=== PATIENT | male | born 1985 | race Caucasian/White ===

== ENCOUNTER 2025-06-21 13:53 | Outpatient (CLI) | payer BC, SELFPAY ==
--- NOTE | 2025-06-21 14:42 | ECG_ITS ---
Test Date: 2025-06-21 14:57:33 Measurements Intervals [place] Rate: 72 P: 23 IA: 156 QRS: -10 QRSD: 111 T: -7 QT: 400 QTc: 439 Interpretive Statements SINUS RHYTHM NONSPECIFIC ST-T CHANGES No previous ECG available for comparison Electronically Signed On 06-21-2025 15:23:07 HAT CONE INSPECTOR by Zia Thapa M.D.
[2025-06-21 15:14] LABS: Add Urine Microscopic? NO; Appearance Urine Clear (Clear); Glucose Urine UA Negative (Negative); Hematocrit 46.6 % (42.0-52.0); Hemoglobin 15.9 g/dL (14.0-18.0); Leukocyte Esterase Ur Negative LEU/UL (Negative); Mean Corpuscular HGB Conc 34.1 g/dl (32-36); Mean Corpuscular Hemoglobin 29.9 pg (26-34); Mean Corpuscular Volume 87.8 fl (80-100); Nitrate Urine Negative (Negative); Platelet Count Result 305 k/mm3 (150-375); Red Blood Count 5.31 M/mm3 (4.6-6.20); Specific Grav Ur 1.014 (1.001-1.035); White Blood Count 12.3 K/mm3 (4.5-10.0)
[2025-06-21 15:24] LABS: Anion Gap 8 mmol/L (4-12); Blood Urea Nitrogen 17 mg/dL (9-20); Calcium 9.4 mg/dL (8.4-10.2); Carbon Dioxide 31 mmol/L (22-30); Chloride 102 mmol/L (98-107); Estimated Glomerular Filt Rate > 60; Glucose 97 mg/dL (65-110); Potassium 3.8 mmol/L (3.4-5.0); Sodium 141 mmol/L (137-145)
[2025-06-21 15:27] LABS: INR 1.0; Prothrombin Time 13.8 Seconds (11.1-14.7)
[2025-06-21 15:28] LABS: Partial Thromboplastin Time 27.0 Seconds (22.3-36.8)
== END 2025-06-21 13:54 | disposition home or self-care (01) ==
LOC: ANHSURGERY 13:59
PROVIDERS: Visit Provider Neurological Surgery
DX: Z01.818 Encounter for other preprocedural examination (principal); I10 Essential (primary) hypertension; M51.369 Other intervertebral disc degeneration, lumbar region without mention of lumbar back pain or lower extremity pain; M48.061 Spinal stenosis, lumbar region without neurogenic claudication
CPT/HCPCS: 36415; 80048; 81003; 85027; 85610; 85730; 93005

== ENCOUNTER 2025-07-14 16:06 | Observation (INO) | payer BC, SELFPAY ==
[2025-06-21 14:20] VITALS: BP 151/98; PULSE 80; RESP 16; TEMP 36.9; O2SAT 98; BMI 38.9
--- NOTE | 2025-06-21 14:35 | PC.NURSE ---
Addendum entered by Rocío Sanders RN 06/21/25 14:40: PT to monitor BP and take meds as prescribed and let PCP know if it remains high, pt was out of medications for pasta 5 days PRINCE Original Note: [facility] has started construction of its new state of the art ER which will open Spring 2026. With this, we anticipate parking may be a challenge for some our surgical patients and families. Parking spaces are limited but are available for all Surgical, obstetrics, and ER patients sharing this lot. If you arrive and find you are having a hard time finding a parking space, please note that we understand the challenges, please drive around the hospital and park near Hospital Entrance 1. When you enter this entrance, you can ask a volunteer to direct or take you back to the surgical waiting area to check in. We appreciate everyone?s understanding of these expected challenges while we build for your future. Report to the Outpatient Waiting Room, entrance under the green pavilion located off [address], at time _1000am on date ___07/13/25 ____. Planned Procedure Time: ___1200pm .? Time changes happen often and if your time is changed the preop area will call you the afternoon before. - You and your visitor will be asked to self-screen and do not enter if you have any COVID symptoms. Please call surgeon if you need to reschedule. - A mask is optional within the hospital at this time. Patients may have clear liquids (water, carbonated beverages, clear teas, apple juice) until 3 hours prior to surgery with a maximum of 20 ounces. - No food from midnight until time of surgery and no smoking, or chewing tobacco (or any form of nicotine). No chewing gum, candy or mints. (09:00am) Take only the following medications with a SIP of water on the morning of surgery: ___Amlodipine, Fluoxetine, Metoprolol and Tylenol if needed DO NOT STOP ANY OF YOUR OTHER PRESCRIPTION MEDICATIONS PRIOR TO SURGERY EXCEPT THE FOLLOWING Hold all vitamins and supplements for 3 days per anesthesiologist. Medications to discontinue per physician Hold Aleve, NSAIDS for [address] Arriola Date to take last dose 07/05/25 Please no make-up, nail english, hairspray, perfume, deodorant, or body powder the day of surgery.? No jewelry (including any body piercings) or valuables the day of surgery, leave them at home.? Please take a shower or bath the night before, or the morning of, surgery with an antibacterial soap. DIAL SOAP? Wear comfortable, loose fitting clothing.? Bring Overnight bag w toiletries . - Jewelry must be removed prior to entering the operating room.? Rings and piercings that are not removed may be cut off. - The hospital will not accept responsibility for valuables.? - Please leave all valuables, including medications, at home the day of surgery. If you are going home after surgery, a licensed utility worker driver must drive you home.? - NO public transportation without another adult if you receive anesthesia. - We recommend that an adult stay with you for 24 hours following discharge. - We also recommend that you do not drive, make important decision, drink alcoholic beverages, or take any drugs that were not prescribed by your health care provider for at least 24 hours after your discharge time. Follow any additional instructions given to you from your surgeon. Telephone instructions given to ___Patient and asked if any additional questions and then verbalized understanding. Patient advised to call surgeon office or pre surgery nurse liaison [phone] if any additional questions.
[2025-07-13] VITALS (16 sets, daily range): BP systolic 103–144; BP diastolic 52–95; PULSE 66–98; RESP 12–18; TEMP 35.3–36.8; O2SAT 87–97
--- OUTSIDE RECORDS SUMMARY | 2025-07-13 02:10 | XMS_ITS | Clinical Summary ---
Author Organization [facility] Address [address] [place] [address] Care Team Providers Care Barrel Rifler Hook Name Role Phone Tala Romero NP Primary Care Provider Antony Sarah MD Unavailable [phone] Allergies Active Allergy Reactions Criticality Noted Date Comments Allopurinol Vomiting Low 03/01/2023 Hydrochlorothiazide Other (See comments) Low 2020 Flares up gout Medications losartan (COZAAR) 100 mg tablet Take 1 tablet (100 mg total) by mouth daily Active pancrelipase (CREON) 24,000 units of lipase capsuleIndication s:exocrine pancreatic insufficiency Take 2 capsules by mouth 3 (three) times a day with meals Active pancrelipase (CREON) 24,000 units of lipase capsuleIndication s:exocrine pancreatic insufficiency Take 1 capsule by mouth with snacks for with snacks Active metoprolol XL (TOPROL-XL) 25 mg extended release tablet Take 1 tablet (25 mg total) by mouth daily Active ondansetron (ZOFRAN) 4 mg tablet Take 1 tablet (4 mg total) by mouth every 8 (eight) hours as needed for nausea or vomiting Active omeprazole (PriLOSEC) 20 mg capsule Take 1 capsule (20 mg total) by mouth daily Active indomethacin (INDOCIN) 50 mg capsuleIndication s:Gout Take 1 capsule (50 mg total) by mouth 3 (three) times a day as needed for pain 3 Active tadalafiL (CIALIS) 20 mg tabletIndications :Erectile dysfunction due to arterial insufficiency Take 1 tablet (20 mg total) by mouth daily as needed for erectile dysfunction (1 max per day) 20 tablet 5 Active Active Problems Problem Noted Date Diagnosed Date RUQ abdominal pain 03/01/2023 Social History Tobacco Use Types Packs/Day Years Used Date Smoking Tobacco: Never Smokeless Tobacco: Current Chew Tobacco Cessation:Ready to Q uit: Not Asked; Counseling Given: Not Answered AUDIT-C Answer Date Recorded Q1: How often do you have a drink containing alcohol? 4 or more times a week 03/01/2023 Q2: How many drinks containi ng alcohol do you have on a typical day when you are drinking? 3 or 4 Q3: How often do you have si x or more drinks on one occasion? Monthly 03/01/2023 Personal Safety Answer Date Recorded Getting School Help Needed Not on file 03/21 Sex and Gender Information Value Date Recorded Sex Assigned at Not on file Legal Sex Male 6:43 AM CDT Gender Identity Not on file Sexual Orientation Not on file Last Filed Vital Signs Vital Sign Reading Time Taken Comments Blood Pressure 154/96 04/23/2023 1:12 PM CDT Pulse 90 04/23/2023 1:12 PM CDT Temperature 35.7 C (96.2 F) 04/23/2023 1:12 PM CDT Respiratory Rate 17 03/02/2023 11:56 AM CDT Oxygen Saturation 97% 03/02/2023 11:56 AM CDT Inhaled Oxygen Concentration - - Weight 127 kg (280 lb) 04/23/2023 1:12 PM CDT Height 190.5 cm (6' 3) 04/23/2023 1:12 PM CDT Body Mass Index 35 04/23/2023 1:12 PM CDT Plan of Treatment Health Maintenance Due Date Last Done Comments Depression Screening 1986 Hepatitis C Screening 1986 DTaP/Tdap/Td Vaccine (1 - Tdap) 1997 Varicella Vaccines (1 of 2 - 13+ 2-dose series) 1999 Hepatitis B Screening 2004 Regular Well Visit/Exam 18-64 2004 HPV Vaccines (1 - 3-dose SCD M series) 2013 Influenza Vaccine (#1) 2025 Pneumococcal vaccine <65 Aged Out No longer eligible based on patient's age to complete this topic Insurance Advance Directives For more information, please contact: [phone] * Full Code (Latest Code Status on File) Date Activated Date Inactivated Comments 03/01/2023 12:03 PM 03/02/2023 6:07 PM Care Teams Barrel Rifler Hook Relationship Specialty Start Date End Date Tala Romero NP PCP - General Family Medicine 03/01/23 [place] [id number] [place] [address] Consulting Physician Gastroenterology 03/02/23
--- OUTSIDE RECORDS SUMMARY | 2025-07-13 02:10 | XMS_ITS | Clinical Summary ---
Author Organization [facility] [employer] Address [address] [place] [address] Care Team Providers Care Child Attendant Name Role Phone None, Physician Primary Care Provider Unavailabl e Source Comments [facility],non-owned Affiliates and Associated Physician Practices is amultiple site organization consisting of ambulatory clinics and hospital sitesin [place], [place], [place] and [place]. This disclosure is being madepursuant to the Care Everywhere program and may not contain all information available regarding this patient. Last updated 18.[facility] [employer] Allergies Active Allergy Reactions Criticality Noted Date Comments Allopurinol Vomiting 08/21/2023 Hydrochlorothiazide Other Low 01/17/2021 Flares up gout Medications * Be aware that medications may not be up to date on this document. Alwaysverify current medications with the patient. amLODIPine (Norvasc) 5 MG tablet Take 1 (one) tablet by mouth once daily 12/06/19 23 Active FLUoxetine (PROzac) 20 MG capsule Take 1 (one) capsule by mouth once daily 01/03/20 23 Active FLUoxetine (PROzac) 10 MG capsule Take 1 (one) capsule by mouth once daily 12/06/19 23 Active indomethacin (Indocin) 50 MG capsule Take 1 (one) capsule by mouth 3 times daily as needed 03/05/20 23 Active losartan - hydroCHLOROthiazide (Hyzaar) 50-12.5 MG tablet Take 1 (one) tablet by mouth once daily 12/06/19 23 Active metoprolol succinate XL 24hr (Toprol XL) 25 MG tablet Take 1 (one) tablet by mouth once daily 12/06/19 23 Active Other Dupixent Inject 300mg SQ every other week Active Active Problems Problem Noted Date Diagnosed Date Eczema 03/07/2023 Fatty liver 03/07/2023 Obstructive sleep apnea syndrome 03/07/2023 RUQ abdominal pain 03/01/2023 Generalized anxiety disorder 09/26/2022 Leg pain 02/07/2021 Chest pain 01/19/2021 Restless legs syndrome 09/03/2018 Gouty arthropathy 08/27/2017 Obesity 11/06/2012 Overview (03/18/2024): Note: Unchanged Benign essential hypertension 07/05/2009 Social History Tobacco Use Types Packs/Day Years Used Date Smoking Tobacco: Never Smokeless Tobacco: Current Chew Tobacco Cessation:Ready to Q uit: Not Asked; Counseling Given: Not Answered Alcohol Use Standard Drinks/Week Comments Not Currently 12 (1 standard drink = 0.6 oz pu re alcohol) 8 TO 12 BEERS PER WEEK Sex and Gender Information Value Date Recorded Sex Assigned at Not on file Legal Sex Male 9:25 AM CDT Gender Identity Not on file Sexual Orientation Not on file Last Filed Vital Signs Vital Sign Reading Time Taken Comments Blood Pressure 168/107 03/18/2024 2:39 PM CDT Pulse 74 03/18/2024 2:39 PM CDT Temperature 36.6 C (97.8 F) 03/18/2024 2:39 PM CDT Respiratory Rate - - Oxygen Saturation 98% 03/18/2024 2:39 PM CDT Inhaled Oxygen Concentration - - Weight 138.1 kg (304 lb 6.4 oz) 03/18/2024 2:39 PM CDT Height 190.5 cm (6' 3) 03/18/2024 2:39 PM CDT Body Mass Index 38.05 03/18/2024 2:39 PM CDT Plan of Treatment Health Maintenance Due Date Last Done Comments HIV SCREENING 2001 DTAP/TDAP/TD VACCINES (1 - Tdap) 2005 HEPATITIS B VACCINE (1 of 3 - 19+ 3-dose series) 2005 HPV VACCINE (1 - 3-dose SCDM series) 2013 DEPRESSION SCREENING 08/05/2024 COVID-19 VACCINE (1 - 2024-2 6 season) 2025 INFLUENZA VACCINE (#1) 2025 ZOSTER VACCINE (1 of 2) 2036 HEPATITIS C SCREENING Completed 08/21/2023 HIB VACCINE Aged Out No longer eligi ble based on patient's age to complete this topic MENINGOCOCCAL (Group B) VACC INE SHARED DECISION-MAKING Aged Out No longer eligibl e based on patient's age to complete this topic MENINGOCOCCAL GROUPS A/C/Y/W VACCINE Aged Out No longer eligible b ased on patient's age to complete this topic PNEUMOCOCCAL VACCINE Aged Out No long er eligible based on patient's age to complete this topic Goals Goal Patient Goal Type Associated Problems Recent Progress Patient-Stated? Author Medication Management General No Eleanor Baez, RN Note: Expected end date: Ongoing Interventions: Take all medications as prescribed Let your doctor know right away about any changes in your medications Make sure to request a refill of your medication at least one week prior to your last dose Procedures Procedure Name Priority Date/Time Associated Diagnosis Comments HEPATITIS C AB SCREEN RFLX NAAT QUANT Routine 08/21/2023 4:11 PM CHRONOGRAPH OPERATOR Hepatic steatosis Elevated LFTs from Last 3 Months or Most Recently Relevant to Health Maintenance Results * HEPATITIS C AB SCREEN RFLX NAAT QUANT (08/21/2023 4:11 PM CHRONOGRAPH OPERATOR) Hepatitis C Antibody Non-react daylin Non-reac tive 08/21/2023 5:03 PM CHRONOGRAPH OPERATOR [facility] Comment:Hepatitis C Antibody screen indicates no serologic evidence of past or current infection with Hepatitis C Virus. Patients with unexplained liver disease who are immunocompromised or suspected of having acute Hepatitis C infection may benefit from Nucleic Acid Test (DALIA) for Hepatitis C Viral RNA to confirm Hepatitis C status. Blood BLOOD SPECIMEN / Unknown Lab Venipuncture / Unknown 08/21/2023 4:11 PM CHRONOGRAPH OPERATOR 08/21/2023 4:18 PM CHRONOGRAPH OPERATOR Brock Law MD LAB - CHEMISTRY ORDERABLES Final Result [facility] [address] [place] [id number], [facility] [phone] from Last 3 Months or Most Recently Relevant to Health Maintenance Insurance [facility] Care Teams Child Attendant Relationship Specialty Start Date End Date None, Physician [address] [place] [address] PCP - General 08/13/23
--- OUTSIDE RECORDS SUMMARY | 2025-07-13 02:10 | XMS_ITS | Clinical Summary ---
Author Organization [facility] Address [address] [place] [address] Care Team Providers Care Nurse Clinical Name Role Phone Patient, None Per Primary Care Provider Unavaila ble Source Comments This disclosure is being made pursuant to the [employer] program and maynot contain all information available regarding this patient.[facility] Medications indomethacin (INDOCIN) 50 MG capsule Take 50 mg by mouth 3 (three) times daily as needed. Active Family History Relation Name Status Comments Father Alive Mother Alive Social History Tobacco Use Types Packs/Day Years Used Date Smoking Tobacco: Never Smokeless Tobacco: Current Chew Alcohol Use Standard Drinks/Week Comments Yes 0 (1 standard drink = 0.6 oz pur e alcohol) rarely Sex and Gender Information Value Date Recorded Sex Assigned at Not on file Legal Sex Male 9:20 AM CDT Gender Identity Not on file Sexual Orientation Not on file Last Filed Vital Signs Vital Sign Reading Time Taken Comments Blood Pressure 132/85 03/21/2019 9:39 AM CDT Pulse 55 03/21/2019 9:39 AM CDT Temperature 36.4 C (97.5 F) 03/21/2019 9:30 AM CDT Respiratory Rate 18 03/21/2019 9:39 AM CDT Oxygen Saturation 97% 03/21/2019 9:39 AM CDT Inhaled Oxygen Concentration - - Weight 115.7 kg (255 lb) 03/21/2019 9:30 AM CDT Height 190.5 cm (6' 3) 03/21/2019 9:30 AM CDT Body Mass Index 31.87 03/21/2019 9:30 AM CDT Plan of Treatment Health Maintenance Due Date Last Done Comments Lab-Cholesterol Screening 1986 Lab-Hepatitis C Screening 1986 Annual Wellness Visit 2004 Hepatitis B Vaccine (1 of 3 - 19+ 3-dose series) 2005 Tetanus/Pertussis Vaccine Teen/Adult (1 - Tdap) 2005 HPV Vaccine (9-26yo & Shared Decision 27-45yo) (1 - 3-dose SCDM series) 2013 COVID-19 Vaccine (1 - 2024-2 6 season) 2025 Influenza Vaccine (#1) 2025 Zoster (Shingles) Vaccine 50 + (1 of 2) 2036 RSV Adult (1 - 1-dose 75+ series) 2061 HIB Vaccine Aged Out No longer eligi ble based on patient's age to complete this topic Hepatitis A Vaccine Aged Out No longe r eligible based on patient's age to complete this topic IPV Vaccine Aged Out No longer eligi ble based on patient's age to complete this topic Meningococcal Conjugate Vaccine Aged Out No longer eligible based on patient's age to complete this topic Pneumococcal Vaccines 0-49 yo Aged Out No longer eligible based on patient's age to complete this topic RSV < 20 Months Aged Out No longer el igible based on patient's age to complete this topic [place] [address] [place] [address] OUT OF STATE Care Teams Nurse Clinical Relationship Specialty Start Date End Date Patient, None Per PCP - General 03/21/19
--- OUTSIDE RECORDS SUMMARY | 2025-07-13 02:10 | XMS_ITS | Clinical Summary ---
Author Organization [facility] Address [address] [place] [address] Care Team Providers Care Research/Program Director Name Role Phone Kenton Kumar MD Unavailable [phone] New Referring, Provider Primary Care Provider Un available Allergies Active Allergy Reactions Criticality Noted Date Comments Allopurinol Vomiting 01/17/2021 Hydrochlorothiazide Other (see comment) 021 Flares up gout Medications traMADol 50 MG tablet TAKE 1 TABLET EVERY 6 HOURS NEEDED FOR PAIN NEEDED 1 Active indomethacin 50 MG capsule Take 50 mg by mouth. Active febuxostat 80 MG tablet TAKE ONE TABLET DAILY--THIS IS AN INCREASED DOSE. 0 Active losartan 100 MG tabletIndications :Essential hypertension Take 1 tablet (100 mg total) by mouth daily. 30 tablet 2 1 Active Active Problems Problem Noted Date Diagnosed Date Leg pain 02/07/2021 Chest pain 01/19/2021 Family History Medical History Relation Comments No Known Problems Brother 1 No Known Problems Brother 2 No Known Problems Brother 3 No Known Problems Daughter No Known Problems Father Hypertension Mother No Known Problems Son Relation Status Comments Brother 1 Alive Brother 2 Alive Brother 3 Alive Daughter Alive Father Alive Mother Alive Son Alive Social History Tobacco Use Types Packs/Day Years Used Date Smoking Tobacco: Never Smokeless Tobacco: Current Chew Tobacco Cessation:Ready to Q uit: No; Counseling Given: Yes Alcohol Use Standard Drinks/Week Comments Yes 20 (1 standard drink = 0.6 oz pu re alcohol) PHQ-2 Answer Date Recorded PHQ-2 Score - If the patient scores above 3, please move on to questions 3-9 0 01/17/2021 Sex and Gender Information Value Date Recorded Sex Assigned at Not on file Legal Sex Male 5:39 PM CDT Gender Identity Not on file Sexual Orientation Not on file Last Filed Vital Signs Vital Sign Reading Time Taken Comments Blood Pressure 139/84 04/17/2022 1:55 PM CDT Pulse 64 04/17/2022 1:55 PM CDT Temperature 36.7 C (98 F) 04/17/2022 10:27 AM CDT Respiratory Rate 16 04/17/2022 1:55 PM CDT Oxygen Saturation 98% 04/17/2022 1:55 PM CDT Inhaled Oxygen Concentration - - Weight 124.7 kg (274 lb 14.6 oz) 04/17/2022 2:35 PM CDT Height 190.5 cm (6' 3) 04/17/2022 2:35 PM CDT Body Mass Index 34.36 04/17/2022 2:35 PM CDT Plan of Treatment Health Maintenance Due Date Last Done Comments Annual Physical 1989 Hepatitis C 2004 DTaP, Tdap and Td Vaccines ( 1 - Tdap) 2005 Hepatitis B Vaccines (1 of 3 - 19+ 3-dose series) 2005 HPV Vaccines (1 - 3-dose SCD M series) 2013 COVID-19 Vaccine (2024-2 6 season) 2025 Influenza Adult (#1) 2025 Hepatitis A Vaccines Aged Out No long er eligible based on patient's age to complete this topic Meningococcal B Vaccine Aged Out No l onger eligible based on patient's age to complete this topic Meningococcal Vaccine Aged Out No john shea eligible based on patient's age to complete this topic Pneumococcal Vaccine: Pediat rics (0 to 5 Years) and At-Risk Patients (6 to 49 Years) Aged Out No longer eligible b ased on patient's age to complete this topic RSV Immunizations Under 20 Months Aged Out No longer eligible based on patient's age to complete this topic Insurance Care Teams Research/Program Director Relationship Specialty Start Date End Date New Referring, Provider PCP - General UNKNOWN PHYSICIAN SPECIALTY 04/17/22 Kenton Kumar MD [place] Screening Nurse INTERVENTIONAL CARDIOLOGY 01/18/21
[2025-07-13] MEDS: LACTATED RINGERS 1,000 ML 30 ML IV CONT ×2 (10:15→14:45)
--- NOTE | 2025-07-13 11:32 | P.HP_ITS ---
H&P: HPI History of Present Illness Date/Time: 07/13/25 11:32 Chief Complaint: back and leg pain Narrative: Pierce is a 40-year-old gentleman with a more than 20 year history of pain in his back radiating into his lower extremities nonspecifically specially the anterior thighs. This has been going on, as mention for many years and has been treated with physical therapy, injections by painter ski edge and over the counter analgesics. This has not been successful for him. His pain is with him almost all the time. It is worse if he is standing or if he is lying down but does not go away if he sits. He does not report specific muscle group weakness or dermatomal numbness and he does not have any bowel or bladder difficulty. The pain is severe and limiting for him on a daily basis. It is limiting and distracting. He is here for L1-2 posterior lumbar interbody fusion. Of note he has 6 lumbar vertebra. Review of Systems Review of Systems: All systems reviewed & are unremarkable except as noted in HPI and below Denies chills, Denies fever, Denies weight gain and Denies weight loss Eyes Denies change in vision and Denies diplopia ENT Denies disequilibrium Card Denies chest pain and Denies dyspnea Resp Denies cough and Denies dyspnea GI Denies abdominal pain, Denies change in bowel habits, Denies fecal incontinence and Denies vomiting Denies hematuria, Denies oliguria, Denies difficulty urinating, Denies dysuria, Denies urinary frequency, Denies urinary hesitancy, Denies urinary incontinence and Denies urinary urgency Musc Reports as per HPI Skin/ Breast Reports system reviewed and no additional complaints, except as documented Neuro Reports as per HPI Psych Reports no additional complaints, Denies depression and Denies hopelessness Endo Reports no additional complaints and Denies polyuria John/ Lymph Reports no additional complaints Aller/ Immun Reports no additional complaints FORMERLY [facility] Past Medical History Medical History (Updated 07/13/25 @ 11:35 by Miguelito Arriola MD) Gout HTN (hypertension) Surgical History Surgical History History of cholecystectomy Family History Family History Mother Hypertension Grandparent Diabetes mellitus Breast cancer Grandparent Diabetes mellitus Social History Social History Smoking status: Current every day smoker Tobacco type: smokeless tobacco Smokeless tobacco user: chewing tobacco Alcohol intake: current Drinks per week: 14 Alcohol use details: occasionally Substance use: never Substance use type: does not use Lack of Transportation: No Lack of Food: Never True Current Housing: I Have Housing Concerned About Future Housing: No Difficulty Paying Gas/Electric Bills: No Difficulty Paying for Meds: No Currently Unemployed: No Education: Associate Degree Difficulty w/ Childcare or Family Care: No Living arrangements: with family Additional living arrangements comments: [place] Spiritual care concerns: No Meds Home Medications and Allergies Home Medications ?Medication ?Instructions ?Recorded ?Confirmed ?Type allopurinol 100 mg tablet 100 mg PO DAILY 01/25/2504/29 History amlodipine 5 mg tablet 5 mg PO DAILY 01/25/2507/13 History metoprolol succinate 25 mg 25 mg PO DAILY 01/25/2504/29 History tablet,extended release 24 hr naproxen sodium 220 mg tablet 220 mg PO Q8H PRN pain 0 01/25/25 07/13/25 History (Aleve) fluoxetine 20 mg capsule 30 mg PO DAILY 06/21/25 12/04/29 History losartan 100 1 tablet PO DAILY 06/21/25 1 09/13/24 History mg-hydrochlorothiazide 12.5 mg tablet tadalafil 20 mg tablet 20 mg PO .as needed PRN sexu al 06/21/25 07/13/25 History activity Allergies Allergy/AdvReac Type Severity Reaction Status Date / Time No Known Allergies Allergy Verified 07/13/25 10:58 Vital Signs Vital Signs - 24 hr 07/13/25 11:01 Temperature 97.7 F Pulse Rate 72 Respiratory Rate 16 Blood Pressure 144/95 H Exam Narrative: General: cooperative, no acute distress, well developed, alert and awake Orientation/Consciousness: oriented to person, oriented to place and oriented to time Constitutional Limitations: no limitations Other: The patient is a normally developed, normal appearing male sitting on the examination table in no acute distress. He is awake, alert, and oriented x3 with good fund of knowledge, recall of events, and fluent speech. HENMT Head: normocephalic and atraumatic Ears: external ears normal Face/Nose/Sinus: Normal external nose present Eyes Eyelids: eyelids normal Pupils: Yes Pupils normal by confrontation EOM: EOMs intact bilaterally Neck General: Yes no meningeal signs, Yes supple and Yes no JVD Resp Effort/Inspection: normal respiratory effort and able to speak in complete sentences Cardio Rate: Yes regular rate GI Inspection: No abdominal distension Musc Other: Examination of the back reveals no tenderness. Range of motion of the back is full without pain in forward flexion, extension, and lateral rotation to both sides. Straight leg raise is negative bilaterally. Lauro?s test is negative bilaterally. Skin General: normal color Neuro General: Yes oriented to person, Yes oriented to place, Yes oriented to time, Yes normal cognition and Yes no meningeal signs Cranial Nerves: Yes CN's II-XII intact bilaterally Other: Motor: Strength is normal, 5/5, throughout all muscle groups of the bilateral lower extremities to direct confrontation. Sensory: Sensation is intact to light touch throughout the lower extremities bilaterally. Reflexes: deep tendon reflexes difficult to elicit the knees or ankles bilaterally. There is no clonus. Gait: Gait, station, and transfers are independent and steady for short periods of time and over short distances. Psych Appearance: grossly normal Mental status: Yes mental status grossly normal Mood: congruent mood Affect: Yes normal affect Speech/Movement: Normal speech and movement present Attitude: Yes cooperative Thought Content: Normal thought content Review studies: MRI of the lumbar spine was personally reviewed by me. X-rays demonstrate that there may be a 6th lumbar vertebra. By that counting, at L1-2 there is some severe degeneration of the disc and ligamentous and facet hypertrophy causing at least moderately severe if not severe central canal stenosis at that level. Assessment and Plan Assessment and plan (1) Lumbar stenosis: Code(s): M48.061 - Spinal stenosis, lumbar region without neurogenic claudication Status: Acute Assessment and Plan: Pierce is a 40-year-old gentleman with severe back pain that radiates proximally into his lower extremities likely related to the process at L1-2. Of note, he has 6 lumbar vertebra. Given the amount of time that he has had this problem the best option for him would be to decompress and fuse this level by way of posterior lumbar interbody fusion. I therefore described to him that operation, its risks, potential benefits, the operative and postoperative course in detail and answered all his questions personally. We discussed risks including but not limited to permanent neurologic deficit secondary to nerve root injury, reoperation secondary to infection, bleeding, CSF leak, adjacent level disease, recurrent residual pathology of all or instability, malposition or migration of the hardware or nonunion, failure of the procedure to relieve his pain or symptoms, persistent pain, medical complications related anesthesia or surgery, etc.. He indicates understanding and elects to proceed with that operation. (2) Annular tear of lumbar disc: Code(s): M51.369 - Other intervertebral disc degeneration, lumbar region without mention of lumbar back pain or lower extremity pain Status: Acute
--- NOTE | 2025-07-13 11:35 | WPDHPUPDATE1 ---
History and Physical Update Update Date/Time: 07/13/25 11:35 History and Physical has been reviewed, including an updated exam of the patient. There are NO changes in the patient's condition. Risks, benefits, and alternatives have been discussed and questions answered. Patient agrees to proceed with procedure.
--- NOTE | 2025-07-13 11:47 | WPDANESEPPF ---
Anes - Initial Pre Proc Eval Procedure: Operation Date: 07/13/25 12:00 Proposed Procedures p L1-2 Posterior Lumbar Interbody Fusion - Miguelito Arriola MD Date/Time: 07/13/25 11:47 Surgeon: Miguelito Arriola MD Pre Op Diagnosis: L1-2 spondylosis and stenosis Patient Data Age: 40 Gender: M Height: 1.91 m Weight: 136.9 kg Last Vital Signs Temp 36.5 C 07/13/25 11:01 Pulse 72 07/13/25 11:01 Resp 16 07/13/25 11:01 BP 144/95 H 07/13/25 11:01 Pulse Ox 98 06/21/25 14:20 O2 Del Method Room Air 06/21/25 14:20 Allergies Allergy/AdvReac Type Severity Reaction Status Date / Time No Known Allergies Allergy Verified 07/13/25 10:58 Home Medications ?Medication ?Instructions ?Recorded ?Confirmed ?Type allopurinol 100 mg tablet 100 mg PO DAILY 01/25/25 07/13/25 History amlodipine 5 mg tablet 5 mg PO DAILY 01/25/25 07/13/25 History metoprolol succinate 25 mg 25 mg PO DAILY 01/25/25 07/13/25 History tablet,extended release 24 hr naproxen sodium 220 mg tablet 220 mg PO Q8H PRN pain 01/25/25 07/13/25 History (Aleve) fluoxetine 20 mg capsule 30 mg PO DAILY 06/21/25 07/13/25 History losartan 100 1 tablet PO DAILY 06/21/25 07/13/25 History mg-hydrochlorothiazide 12.5 mg tablet tadalafil 20 mg tablet 20 mg PO .as needed PRN sexual 06/21/25 07/13/25 History activity Laboratory Tests 07/13/25 10:18 Blood Type O Positive Antibody Screen Negative Patient hx anesthesia problems: none Family hx anesthesia problems: none Results Review: All pre-operative results and documents have been reviewed as part of the pre-operative evaluation. [facility] Past Medical History Medical History (Updated 07/13/25 @ 11:58 by Jason Sheehan DO) CARMENCITA (obstructive sleep apnea) Gout HTN (hypertension) Surgical History Surgical History History of cholecystectomy Family History Family History Mother Hypertension Grandparent Diabetes mellitus Breast cancer Grandparent Diabetes mellitus Social History Social History (Updated 07/13/25 @ 11:58 by Jason Sheehan DO) Smoking status: Current every day smoker Tobacco type: smokeless tobacco Smokeless tobacco user: chewing tobacco Alcohol intake: current Alcohol use details: 3-4 drinks/day Substance use: never Substance use type: does not use Lack of Transportation: No Lack of Food: Never True Current Housing: I Have Housing Concerned About Future Housing: No Difficulty Paying Gas/Electric Bills: No Difficulty Paying for Meds: No Currently Unemployed: No Education: Associate Degree Difficulty w/ Childcare or Family Care: No Living arrangements: with family Additional living arrangements comments: [place] Spiritual care concerns: No Anes - Eval Final PreProcedure Day of Procedure 07/13/25 11:47 Patient weight: obese Heart: regular rate and rhythm Lungs: clear to auscultation Airway: Mallampati scale class II Neurological: alert and oriented Last oral intake: >/= 8 hours ASA classification: III Emergent: no Anesthetic plan: proceed Anesthesia type and monitoring: general ETT and standard monitoring Results Review: All pre-operative results and documents have been reviewed as part of the pre-operative evaluation. Informed Consent: The patient's anesthetic plan and its attendant risks and benefits were discussed with the patient/family/POA. Questions were solicited and answers provided to the satisfaction of the patient/family/POA.
[2025-07-13] MEDS: ceFAZolin 3 GM/D5W 100 ML 100 ML IVPB (12:05)
[2025-07-13] MEDS: LIDO 1%/EPINEPHRINE 1:100,000 50 ML VIAL (13:00)
[2025-07-13] MEDS: fentaNYL CITRATE INJ (*CRX) 100 MCG/2 ML VIAL 25 MCG IV PUSH ×4 (15:25→16:19)
--- NOTE | 2025-07-13 16:29 | ADMGEN ---
This patient, Pierce Guzman, was admitted to Medical Room 250-01. Patient/family oriented to hospital policies and general routines including ID bracelet, bed and alarms, visiting hours, pain management, procedures, bathroom and other care routines, personal items, smoking policy, room service/diet, and visiting hours. Information on how to activate the Rapid Response Team has been discussed. Patient/Family are encouraged to report perceived risks to care and to ask questions if they do not understand what they are told or what they should do.
[2025-07-13] MEDS: HYDROcodone/acetaminophen (*CRX) 5-325 MG TABLET 1 TAB PO (17:12)
[2025-07-13] MEDS: CYCLOBENZAPRINE HCL 10 MG TABLET PO (18:08)
[2025-07-13] MEDS: HYDROmorphone HCL INJ (*CRX) 1 MG/ML SYR 0.5 MG IV PUSH ×2 (18:52→21:23)
[2025-07-13] MEDS: ceFAZolin 2 GM in SODIUM CHLORIDE 0.9% IV 50 ML 100 ML IVPB (20:50)
[2025-07-13] MEDS: HYDROcodone/acetaminophen (*CRX) 10-325 MG TABLET 1 TAB PO (21:22)
[2025-07-13] MEDS: DOCUSATE SODIUM 100 MG CAPSULE PO (21:23)
--- NOTE | 2025-07-13 22:19 | W.PM.PROC2 ---
Procedure Note - Detailed Date of Procedure 07/13/25 Pre-op Diagnosis L1-2 spondylosis and stenosis Post-op Diagnosis Same Procedure Performed L1-2 laminectomy and bilateral facetectomy, L1-2 complete diskectomy and interbody arthrodesis utilizing titanium interbody device and local autograft, L1-2 pedicle screw instrumentation Surgeon Miguelito Arriola MD Anesthesia General Description of Procedure the patient was brought to the operating room in the supine position, was sedated, intubated and placed under general anesthesia in routine fashion. he was then turned into the prone position on a Walter frame. The operation his back was examined, marked for incision, prepped and draped in routine sterile fashion. Incision was marked over the L1 and L2 spinous processes in the midline. This area was injected with 0.5% lidocaine with 1 200,000 epinephrine. Intravenous antibiotics given prior to incision. Of note, the patient has 6 lumbar vertebra. Incision was made using a 10 blade scalpel. A subperiosteal dissection of the muscle and soft tissue away from spinous process and lamina was performed with a subperiosteal elevator and Bovie cautery. A verifying x-rays obtained to verify level of operation. The L1 spinous process was removed with a Tho rongeur. Kerrison punches, curved curettes and a Jo-Annksell rongeur were used to remove lamina in the midline until the soft contents of the canal were encountered. A Midas Jason drill was used to resect the pars bilaterally at L1. The inferior articular process and facet of L1 could then be removed bilaterally. These plus spinous process were stripped free of soft tissue and morselized for later use as interbody autograft. Kerrison punches and curved curettes were used to define a plane with the dura and removed bone and ligament flush with the pedicle and through the foramina widely decompressing the exiting nerve roots. With the thecal sac retracted and protected the disc space was entered bilaterally using an 11 blade scalpel. Scrapers of various sizes, curettes of various configurations, pituitary rongeur and a rasp were used to remove as much cartilaginous endplate and disc material as possible down to bleeding cortical surfaces on the opposing bones. The disc space was incised and a 9 mm TLIF device was chosen and filled with local autograft bone the disc space was likewise filled with local autograft bone bilaterally. The interbody device was then placed from the right side diagonally across the disc space. Pedicle screw instrumentation was performed at L1 and L2 by observing and palpating the pedicle while a hole was made in superior articular process above the pedicle using a Midas Jason drill. The pedicle was then cannulated with a pedicle probe, checked for continuity with the ball probe, tapped with a 5.5 mm tap and a 6.5 x 50 mm screw was placed into each pedicle on each side. Rods were placed into the screw heads on either side and secured in position using the capsular that purpose. These were definitively tightened with a torque and counter-torque device. A verifying x-rays obtained to verify good position of the instrumentation which was confirmed. The wound was copiously irrigated with bacitracin irrigation all bleeding stopped with bipolar and Bovie cautery and Gelfoam thrombin powder. A medium Hemovac drain was left in the subfascial position buried after the inferior right of the incision. The wound was then closed in layered fashion with 2-0 Vicryl interrupted sutures in the lumbodorsal fascia and Qing's layer. 3-0 Vicryl buried interrupted sutures were placed in the dermis and the skin was closed with a running 4-0 Monocryl subcuticular stitch and dressed with Dermabond. The patient was allowed to wake up in the operating room and was taken to the recovery room in stable condition. All counts were reported correct at the end of the case. Blood loss was 350 cc. The patient was neurologically at his baseline postoperatively. CPT codes: 87263, 88296, 42377, 03461, 77166 Estimated Blood Loss 350 Urine Output 200 Drains Yes Complications None Condition Stable Disposition PACU [facility] Billing Surgery - Charge Forward: Surgery Billing
--- NOTE | ~2025-07-14 | XR_ITS ---
EXAM/PROCEDURE: XR fluoroscopy no charge HISTORY: L1-2 POSTERIOR LUMBAR INTERBODY FUSION COMPARISON: None available. TECHNIQUE: Fluoroscopic spot images for fluoroscopy assisted procedure. Fluoroscopy time: 13.0 seconds DAP: 3.6832 Baxter per square centimeter IMPRESSION: Fluoroscopic guided imaging. No radiologist present. See also procedure/operative notes for complete evaluation. Reviewed, dictated and finalized at location A. MAP TECHNICIAN IMPRESSION: Fluoroscopic guided imaging. No radiologist present. See also proce dure/operative notes for complete evaluation.
[2025-07-14] MEDS: HYDROcodone/acetaminophen (*CRX) 10-325 MG TABLET 1 TAB PO ×5 (02:57→21:16)
[2025-07-14] MEDS: HYDROmorphone HCL INJ (*CRX) 1 MG/ML SYR 0.5 MG IV PUSH ×6 (02:57→19:43)
[2025-07-14 03:18] VITALS: BP 113/56; PULSE 77; RESP 18; TEMP 35.7; O2SAT 96
[2025-07-14] MEDS: CYCLOBENZAPRINE HCL 10 MG TABLET PO (04:06)
[2025-07-14] MEDS: DOCUSATE SODIUM 100 MG CAPSULE PO ×2 (08:46→21:13)
[2025-07-14] MEDS: ceFAZolin 2 GM in SODIUM CHLORIDE 0.9% IV 50 ML 100 ML IVPB ×2 (08:46→20:03)
[2025-07-14 09:00] VITALS: BP 116/64; PULSE 102; RESP 14; TEMP 36.3; O2SAT 96
[2025-07-14 11:24] VITALS: BP 122/69; PULSE 85; RESP 14; TEMP 36.7; O2SAT 95
--- NOTE | 2025-07-14 13:04 | WPDNEUROSGPN ---
Progress Note: A&P Assessment and Plan (1) Status post lumbar spinal arthrodesis: Code(s): Z98.1 - Arthrodesis status Status: Acute Plan -Keep HV in for today -Pain control -Ambulate in halls -Anticipate discharge home tomorrow Subjective Date/time seen: 07/14/25 13:04 Interval history: Doing ok today with reasonable pain control. Has ambulated quite a bit. He thinks his pain while walking is somewhat improved compared to before surgery. Denies any lower-extremity symptoms. Tolerating oral intake and voiding independently. He does state that his tailbone is quite painful Review of Systems Review of Systems: All systems reviewed & are unremarkable except as noted in HPI and below Exam Narrative: AOx4 Incision c/d/i with dermabond in place Full strength and sensation in legs HV 325cc out since surgery Objective Data Vital Signs Vital Signs: Vital Signs - 24 hr 07/13/25 14:45 07/13/25 15:00 07/13/25 15:15 Temperature 97.0 F L Pulse Rate 66 68 98 Respiratory Rate 12 16 16 Blood Pressure 103/61 111/72 108/65 Pulse Oximetry 94 95 96 Oxygen Delivery Simple Face Mask Simple Face Mask Simple Face Mask Oxygen Flow Rate 8 8 8 07/13/25 15:28 07/13/25 15:30 07/13/25 15:45 Temperature Pulse Rate 84 81 Respiratory Rate 12 12 Blood Pressure 126/77 132/59 L Pulse Oximetry 95 95 95 Oxygen Delivery Room Air Nasal Cannula Nasal Cannula Oxygen Flow Rate 2 2 07/13/25 16:00 07/13/25 16:15 07/13/25 17:00 Temperature 97.4 F L 98.2 F Pulse Rate 92 86 84 Respiratory Rate 12 12 17 Blood Pressure 107/61 113/73 113/69 Pulse Oximetry 95 97 93 Oxygen Delivery Nasal Cannula Nasal Cannula Oxygen Flow Rate 2 2 07/13/25 17:14 07/13/25 17:23 07/13/25 17:57 Temperature 97.9 F 97.7 F 98.2 F Pulse Rate 71 89 75 Respiratory Rate 16 16 15 Blood Pressure 116/70 109/65 130/64 Pulse Oximetry 94 94 94 Oxygen Delivery Oxygen Flow Rate 07/13/25 18:56 07/13/25 19:24 07/13/25 23:24 Temperature 97.5 F L 96.6 F L 95.5 F L Pulse Rate 82 87 83 Respiratory Rate 16 18 18 Blood Pressure 129/52 L 115/60 107/55 L Pulse Oximetry 94 87 L 96 Oxygen Delivery Oxygen Flow Rate 07/14/25 03:18 07/14/25 07:57 07/14/25 08:22 Temperature 96.3 F L Pulse Rate 77 Respiratory Rate 18 Blood Pressure 113/56 L Pulse Oximetry 96 Oxygen Delivery Room Air Room Air Oxygen Flow Rate 07/14/25 09:00 07/14/25 11:24 Temperature 97.4 F L 98.0 F Pulse Rate 102 H 85 Respiratory Rate 14 14 Blood Pressure 116/64 122/69 Pulse Oximetry 96 95 Oxygen Delivery Oxygen Flow Rate Intake/Output Intake/Output: Intake & Output 07/11/25 07/12/25 07/13/25 07/14/25 23:59 23:59 23:59 23:59 Intake Total 390 410 Output Total 555 310 Balance -165 100 Meds/Results Medications: Active Medications Generic Name Dose Route Start Last Admin Trade Name Freq PRN Reason Stop Dose Admin Hydrocodone Bitart/Acetaminophen 1 tab 07/13/25 16:24 07/13/25 17:12 Hydrocodone/Acetaminophen (*Crx) 5-325 Mg Tablet PO 1 tab Q4H PRN Administration Mild Pain (1-3) Hydrocodone Bitart/Acetaminophen 1 tab 07/13/25 16:24 07/14/25 12:54 Hydrocodone/Acetaminophen (*Crx) 10-325 Mg Tablet PO 1 tab Q4H PRN Administration Moderate Pain (4-6) Al Hydrox/Mg Hydrox/Simethicone 20 ml 07/13/25 16:24 Mag Hydrox/Al Hydrox/Simeth 30 Ml Udc PO Q4H PRN Indigestion/Heartburn Allopurinol 100 mg 07/13/25 21:25 07/13/25 23:10 Allopurinol 100 Mg Tablet PO Not Given HS MONICA Amlodipine Besylate 5 mg 07/13/25 21:25 07/13/25 23:10 Amlodipine Besylate 5 Mg Tablet PO Not Given HS MONICA Bisacodyl 10 mg 07/13/25 16:24 Bisacodyl 10 Mg Suppository RECTAL DAILY PRN Constipation Cyclobenzaprine HCl 10 mg 07/13/25 16:24 07/14/25 04:06 Cyclobenzaprine Hcl 10 Mg Tablet PO 10 mg TID PRN Administration Muscle Spasms Docusate Sodium 100 mg 07/13/25 21:00 07/14/25 08:46 Docusate Sodium 100 Mg Capsule PO 100 mg Q12HR MONICA Administration Fluoxetine HCl 30 mg 07/14/25 09:00 07/14/25 08:45 Fluoxetine Hcl 10 Mg Capsule PO 30 mg QAM MONICA Administration Hydrochlorothiazide 12.5 mg 07/13/25 21:25 07/13/25 23:10 Hydrochlorothiazide 12.5 Mg Capsule PO Not Given HS MONICA Hydromorphone HCl 0.5 mg 07/13/25 16:24 07/14/25 10:19 Hydromorphone Hcl Inj (*Crx) 1 Mg/Ml Syr IV PUSH 0.5 mg Q2H PRN Administration Pain Rated 7-10 Cefazolin Sodium 2 gm/ Sodium 50 mls @ 100 mls/hr 07/13/25 20:00 07/14/25 10:20 Chloride IVPB Infused Q12H MONICA Infusion Losartan Potassium 100 mg 07/13/25 21:25 07/13/25 23:10 Losartan Potassium 100 Mg Tablet PO Not Given HS MONICA Metoprolol Succinate 25 mg 07/13/25 21:25 07/13/25 23:10 Metoprolol Succinate Ext Rel 25 Mg Tabcr PO Not Given HS MONICA Ondansetron HCl 4 mg 07/13/25 16:24 Ondansetron Inj 4 Mg/2 Ml Vial IV PUSH Q8H PRN Nausea And Vomiting Senna/Docusate Sodium 1 tab 07/13/25 16:24 Senna/Docusate Sodium Tablet PO HS PRN Constipation Radiology Results: ITS Impressions Fluoroscopy 07/13/25 16:06 IMPRESSION: Fluoroscopic guided imaging. No radiologist present. See also procedure/operative notes for complete evaluation.
[2025-07-14 15:24] VITALS: BP 128/71; PULSE 90; RESP 14; TEMP 36.3; O2SAT 94
[2025-07-14] MEDS: MAG HYDROX/AL HYDROX/SIMETH 30 ML UDC 20 ML PO (17:04)
[2025-07-14] MEDS: SENNA/DOCUSATE SODIUM TABLET 1 TAB PO (17:04)
[2025-07-14 19:24] VITALS: BP 137/71; PULSE 87; RESP 16; TEMP 36.5; O2SAT 95
[2025-07-15] MEDS: HYDROcodone/acetaminophen (*CRX) 10-325 MG TABLET 1 TAB PO ×3 (02:54→14:58)
[2025-07-15] MEDS: HYDROmorphone HCL INJ (*CRX) 1 MG/ML SYR 0.5 MG IV PUSH ×2 (03:35→05:47)
[2025-07-15] MEDS: BISACODYL 10 MG SUPPOSITORY RECTAL (05:48)
[2025-07-15] MEDS: DOCUSATE SODIUM 100 MG CAPSULE PO (10:06)
[2025-07-15] MEDS: ceFAZolin 2 GM in SODIUM CHLORIDE 0.9% IV 50 ML 100 ML IVPB (10:08)
[2025-07-15] MEDS: SENNOSIDES 8.6 MG TABLET PO (11:56)
[2025-07-15] MEDS: CYCLOBENZAPRINE HCL 10 MG TABLET PO (11:56)
[2025-07-15 14:17] VITALS: BP 141/86; PULSE 84; RESP 14; TEMP 36.3; O2SAT 94
== END 2025-07-15 15:23 | disposition home or self-care (01) ==
LOC: ANHSURGERY 16:12 → ANH2MED 16:12
PROVIDERS: Admitting Provider Neurological Surgery; Visit Provider Neurological Surgery
PROC: (CPT 22612; principal; 2025-07-13 12:00)
DX: M48.061 Spinal stenosis, lumbar region without neurogenic claudication (principal); M47.816 Spondylosis without myelopathy or radiculopathy, lumbar region; M51.369 Other intervertebral disc degeneration, lumbar region without mention of lumbar back pain or lower extremity pain; M10.9 Gout, unspecified; F17.220 Nicotine dependence, chewing tobacco, uncomplicated; Z79.1 Long term (current) use of non-steroidal anti-inflammatories (NSAID); Z86.79 Personal history of other diseases of the circulatory system; Z90.49 Acquired absence of other specified parts of digestive tract; Z80.3 Family history of malignant neoplasm of breast; Z83.3 Family history of diabetes mellitus; Z82.49 Family history of ischemic heart disease and other diseases of the circulatory system
CPT/HCPCS: 22630; 63052; 22853; 22842; 20936; 36415; 86850; 86900; 86901; 97161; 97166; 97535; 99199; J0690; A9270; C1713; G0378; J1100; J1171; J2003; J2004; J2250; J2405; J2704; J3010; J7120